=== PATIENT | male | born 1945 | race African-American/Black ===

== ENCOUNTER 2020-08-17 15:45 | Inpatient (IN) | payer OTHER ==
[2020-08-17 17:59] VITALS: BMI 16.4
[2020-08-17] MEDS ORDERED: Heparin 10,000 UNITS/ 10 ML VIAL FS SCH (20:30)
[2020-08-18] MEDS ORDERED: Ondansetron PF 4 MG/2 ML Vial IVP PRN (01:41)
[2020-08-18] MEDS ORDERED: Acetaminophen 325 MG TAB PO PRN (01:41)
[2020-08-18 04:10] LABS: #Basophils 0.1 thou/uL (0.0-0.2); #Eosinphils 0.4 thou/uL (0.0-0.7); #Monocytes 1.2 thou/uL (0.11-0.59); %Basophils 0.8 % (0.0-1.0); %Eosinophils 4.3 % (0.0-10.0); %Lymphocytes 20.5 % (21.0-51.0); %Monocytes 12.7 % (0.0-10.0); %Neutrophils 61.7 % (42.0-75.0); Hemoglobin 12.1 g/dL (14.0-18.0); Mean Corpuscular HGB CONC 33.5 g/dL (32.0-36.0); Mean Corpuscular Volume 98.5 fL (78.0-98.0); Mean Platelet Volume 6.3 fL (7.4-10.4); Platelet Count 303 thou/uL (130-400); RBC Distribution Width 11.4 % (11.5-14.5); Red Blood Cell (RBC) Count 3.66 mill/uL (4.70-6.10); White Blood Cell (WBC) Count 9.6 thou/uL (4.8-10.8)
[2020-08-18 04:29] LABS: Anion Gap 9 mmol/L (10-20); BUN (Urea Nitrogen) 8 mg/dL (8.4-25.7); Calc. Creatinine Clearance 53 mL/min (70-130); Calcium 8.1 mg/dL (7.8-10.44); Carbon Dioxide 29 mmol/L (23-31); Chloride 102 mmol/L (98-107); Glucose 92 mg/dL (83-110); Potassium 4.1 mmol/L (3.5-5.1); Sodium 136 mmol/L (136-145)
[2020-08-18 09:17] LABS: RBC Count-Automated (BF) 577 /cu.mm; WBC/Nucleated-Auto (BF) 348 uL
[2020-08-18] MEDS: methylPREDNISolone Sod Succ/PF 125 MG/2 ML VIAL IVP SCH ×2 (10:13→20:02)
[2020-08-18 10:14] LABS: Body Fluid Source Thoracentesis Fluid
[2020-08-18 10:15] LABS: BF Color Yellow; Clarity Hazy (Clear); Tube # 1
[2020-08-18 10:18] LABS: BF Segmented Neutrophils 22 %; Cell Count Non Hematic 51 %; Eosinophils 1 %; Lymphocytes 26 %
[2020-08-18] MEDS ORDERED: Magnevist 469MG/ML 20 ML VIAL ONE (10:59)
[2020-08-19 04:22] LABS: #Lymphocytes 0.9 thou/uL (1.20-3.40); #Monocytes 0.5 thou/uL (0.11-0.59); #Neutrophils 13.1 thou/uL (1.40-6.50); %Lymphocytes 6.2 % (21.0-51.0); %Monocytes 3.5 % (0.0-10.0); %Neutrophils 90.3 % (42.0-75.0); Hemoglobin 11.7 g/dL (14.0-18.0); Mean Corpuscular HGB CONC 32.2 g/dL (32.0-36.0); Mean Corpuscular Hemoglobin 31.7 pg (27.0-31.0); Mean Corpuscular Volume 98.5 fL (78.0-98.0); Mean Platelet Volume 6.7 fL (7.4-10.4); Platelet Count 305 thou/uL (130-400); RBC Distribution Width 11.6 % (11.5-14.5); Red Blood Cell (RBC) Count 3.69 mill/uL (4.70-6.10); White Blood Cell (WBC) Count 14.5 thou/uL (4.8-10.8)
[2020-08-19 07:39] LABS: Anion Gap 9 mmol/L (10-20); BUN (Urea Nitrogen) 13 mg/dL (8.4-25.7); Calc. Creatinine Clearance 41 mL/min (70-130); Calcium 8.6 mg/dL (7.8-10.44); Carbon Dioxide 28 mmol/L (23-31); Chloride 104 mmol/L (98-107); Glucose 127 mg/dL (83-110); Potassium 4.4 mmol/L (3.5-5.1); Sodium 137 mmol/L (136-145)
[2020-08-19] MEDS: methylPREDNISolone Sod Succ/PF 125 MG/2 ML VIAL IVP SCH ×2 (09:10→20:13)
[2020-08-19] MEDS ORDERED: Loratadine 10 MG TAB PO PRN (10:29)
[2020-08-19] MEDS ORDERED: HYDROcodone/Acetaminophen 5/325 mg Tablet PO PRN (10:29)
[2020-08-19] MEDS ORDERED: Ondansetron ODT 4 MG TAB PO PRN (10:29)
[2020-08-19] MEDS ORDERED: GUAIFENESIN SF SOLN 200 MG/10 ML UDCUP PO PRN (10:29)
[2020-08-19] MEDS ORDERED: hydrALAZINE 20 MG/ML VIAL SLOW IVP PRN (10:29)
[2020-08-19] MEDS ORDERED: Benzonatate 100 MG CAP PO PRN (10:29)
[2020-08-19] MEDS ORDERED: Loperamide HCl 2 MG CAP PO PRN (10:29)
[2020-08-19] MEDS ORDERED: Calcium Carbonate 500 MG ChewTAB PO PRN (10:29)
[2020-08-19] MEDS ORDERED: Senokot S 8.6-50 MG TAB PO PRN (10:29)
[2020-08-19] MEDS ORDERED: Cepastat Lozenges 1 LOZ PO PRN (10:29)
[2020-08-19] MEDS ORDERED: Sodium Chloride 0.65% Nasal 44 ML BOT EA NARE PRN (10:29)
[2020-08-19] MEDS ORDERED: Bisacodyl 5 MG TAB PO PRN (10:29)
[2020-08-19] MEDS ORDERED: Iopamidol-370 76% 500 ML 1 ML ONE (10:46)
[2020-08-19] MEDS: Mometasone 200 MCG/Formoterol 5 MCG 120 PUFF INHALER INH SCH (18:05)
[2020-08-19] MEDS: Famotidine 20 MG TAB PO SCH (20:13)
[2020-08-20 06:07] LABS: Mean Corpuscular HGB CONC 33.3 g/dL (32.0-36.0); Mean Corpuscular Hemoglobin 32.8 pg (27.0-31.0); Mean Corpuscular Volume 98.4 fL (78.0-98.0); Mean Platelet Volume 6.7 fL (7.4-10.4); Platelet Count 301 thou/uL (130-400); RBC Distribution Width 11.7 % (11.5-14.5); Red Blood Cell (RBC) Count 3.66 mill/uL (4.70-6.10)
[2020-08-20 06:26] LABS: Band 1 % (5-11); Lymphocytes 8 % (21-51); MDiff Complete? YES; Monocytes 7 % (0-10); Neutrophil 84 % (42-75)
[2020-08-20 06:27] LABS: Anion Gap 10 mmol/L (10-20); BUN (Urea Nitrogen) 11 mg/dL (8.4-25.7); Calc. Creatinine Clearance 54 mL/min (70-130); Calcium 8.6 mg/dL (7.8-10.44); Carbon Dioxide 27 mmol/L (23-31); Chloride 102 mmol/L (98-107); Glucose 127 mg/dL (83-110); Potassium 4.4 mmol/L (3.5-5.1); Sodium 135 mmol/L (136-145)
[2020-08-20] MEDS: Famotidine 20 MG TAB PO SCH ×2 (08:52→20:06)
[2020-08-20] MEDS: methylPREDNISolone Sod Succ/PF 125 MG/2 ML VIAL IVP SCH ×2 (08:52→20:06)
[2020-08-20] MEDS: Mometasone 200 MCG/Formoterol 5 MCG 120 PUFF INHALER INH SCH ×2 (10:12→19:09)
[2020-08-21 04:43] LABS: #Lymphocytes 0.7 thou/uL (1.20-3.40); #Monocytes 1.1 thou/uL (0.11-0.59); #Neutrophils 14.9 thou/uL (1.40-6.50); %Lymphocytes 4.3 % (21.0-51.0); %Monocytes 6.3 % (0.0-10.0); %Neutrophils 89.4 % (42.0-75.0); Hemoglobin 11.6 g/dL (14.0-18.0); Mean Corpuscular HGB CONC 33.1 g/dL (32.0-36.0); Mean Corpuscular Hemoglobin 32.7 pg (27.0-31.0); Mean Corpuscular Volume 98.8 fL (78.0-98.0); Mean Platelet Volume 6.9 fL (7.4-10.4); Platelet Count 295 thou/uL (130-400); RBC Distribution Width 11.5 % (11.5-14.5); Red Blood Cell (RBC) Count 3.55 mill/uL (4.70-6.10); White Blood Cell (WBC) Count 16.7 thou/uL (4.8-10.8)
[2020-08-21 05:07] LABS: ALT (SGPT) 28 U/L (8-55); AST (SGOT) 23 U/L (5-34); Alkaline Phosphatase 71 U/L (40-110); Anion Gap 12 mmol/L (10-20); BUN (Urea Nitrogen) 15 mg/dL (8.4-25.7); Bilirubin, Total 0.3 mg/dL (0.2-1.2); Calc. Creatinine Clearance 51 mL/min (70-130); Calcium 8.4 mg/dL (7.8-10.44); Carbon Dioxide 29 mmol/L (23-31); Chloride 101 mmol/L (98-107); Globulin 2.9 g/dL (2.4-3.5); Glucose 145 mg/dL (83-110); Potassium 4.1 mmol/L (3.5-5.1); Protein, Total 5.9 g/dL (5.8-8.1); Sodium 138 mmol/L (136-145)
[2020-08-21] MEDS: methylPREDNISolone Sod Succ/PF 125 MG/2 ML VIAL IVP SCH ×2 (07:35→21:06)
[2020-08-21] MEDS: Enoxaparin Sodium 30 MG/0.3 ML SYRINGE SC SCH (07:43)
[2020-08-21] MEDS: Famotidine 20 MG TAB PO SCH ×2 (07:44→21:00)
[2020-08-21] MEDS: Mometasone 200 MCG/Formoterol 5 MCG 120 PUFF INHALER INH SCH ×2 (08:03→19:19)
[2020-08-21] MEDS ORDERED: Fentanyl 100 MCG/2 ML VIAL ONE ×2 (12:51→13:21)
[2020-08-21] MEDS ORDERED: EPINEPHrine 1 MG/ML AMP ONE (13:03)
[2020-08-21] MEDS ORDERED: Bupivacaine PF 0.5% 30 ML VIAL ONE (13:03)
[2020-08-21] MEDS ORDERED: Rocuronium Bromide 10 MG/ML (10ML VIAL) ONE (13:24)
[2020-08-21] MEDS ORDERED: Ondansetron PF 4 MG/2 ML Vial ONE (13:24)
[2020-08-21] MEDS ORDERED: Lidocaine 1% PF 5 ML VIAL ONE (13:24)
[2020-08-21] MEDS ORDERED: Dexamethasone 20 MG/5 ML VIAL ONE (13:24)
[2020-08-21] MEDS ORDERED: PROPOFOL 200 MG/20 ML VIAL ONE (13:24)
[2020-08-21] MEDS ORDERED: Glycopyrrolate 0.2 MG/ML 5 ML SYRINGE ONE (13:24)
[2020-08-21] MEDS ORDERED: Succinylcholine 200 MG/10 ml SYRINGE FS ONE (13:24)
[2020-08-21] MEDS ORDERED: SUGAMMADEX SODIUM 500 MG/5 ML VIAL ONE (14:44)
[2020-08-21] MEDS ORDERED: Promethazine HCl 25 MG/ML VIAL IM PRN (14:50)
[2020-08-21] MEDS ORDERED: Promethazine HCl 25 MG/ML VIAL IVPB PRN (14:50)
[2020-08-21] MEDS ORDERED: Ondansetron HCl/PF 4 MG/2 ML Vial IVP PRN (14:50)
[2020-08-21] MEDS ORDERED: Fentanyl 100 MCG/2 ML VIAL SLOW IVP PRN ×2 (15:09)
[2020-08-21] MEDS ORDERED: Ondansetron PF 4 MG/2 ML Vial IVP PRN (15:09)
[2020-08-21] MEDS ORDERED: HYDROcodone/Acetaminophen 5/325 mg Tablet PO PRN (15:09)
[2020-08-21] MEDS ORDERED: Sodium Chloride 0.9% 1,000 ML IV SCH (15:09)
[2020-08-21] MEDS ORDERED: Talc Infusion/Pleuradesis 4 GM BOT FS SCH (15:30)
[2020-08-21] MEDS ORDERED: Sodium Chloride 0.9% 500 ML IV SCH (17:15)
[2020-08-21 20:58] LABS: Hemoglobin 12.3 g/dL (14.0-18.0); Mean Corpuscular HGB CONC 33.4 g/dL (32.0-36.0); Mean Corpuscular Hemoglobin 33.2 pg (27.0-31.0); Mean Corpuscular Volume 99.3 fL (78.0-98.0); Mean Platelet Volume 6.9 fL (7.4-10.4); Platelet Count 285 thou/uL (130-400); RBC Distribution Width 11.7 % (11.5-14.5); Red Blood Cell (RBC) Count 3.71 mill/uL (4.70-6.10); White Blood Cell (WBC) Count 19.9 thou/uL (4.8-10.8)
[2020-08-21] MEDS: HYDROcodone/Acetaminophen 5/325 mg Tablet PO PRN (21:00)
[2020-08-21] MEDS: Sodium Chloride 0.9% 1,000 ML IV SCH (21:01)
[2020-08-21 21:15] LABS: Anion Gap 15 mmol/L (10-20); BUN (Urea Nitrogen) 15 mg/dL (8.4-25.7); Calc. Creatinine Clearance 51 mL/min (70-130); Carbon Dioxide 26 mmol/L (23-31); Chloride 100 mmol/L (98-107); Glucose 153 mg/dL (83-110); Potassium 4.5 mmol/L (3.5-5.1); Sodium 136 mmol/L (136-145)
[2020-08-21 21:17] LABS: Band 15 % (5-11); Lymphocytes 4 % (21-51); MDiff Complete? YES; Monocytes 12 % (0-10); Neutrophil 69 % (42-75)
[2020-08-22] MEDS: Sodium Chloride 0.9% 1,000 ML IV SCH ×3 (04:08→20:46)
[2020-08-22] MEDS: Mometasone 200 MCG/Formoterol 5 MCG 120 PUFF INHALER INH SCH ×2 (08:12→18:09)
[2020-08-22] MEDS: Famotidine 20 MG TAB PO SCH ×2 (09:35→20:45)
[2020-08-22] MEDS: methylPREDNISolone Sod Succ/PF 125 MG/2 ML VIAL IVP SCH (09:36)
[2020-08-22] MEDS: Enoxaparin Sodium 30 MG/0.3 ML SYRINGE SC SCH (09:36)
[2020-08-22] MEDS: Tamsulosin HCl 0.4 MG CAP PO SCH (11:39)
[2020-08-22] MEDS: Zolpidem Tartrate 5 MG TAB PO PRN (20:47)
[2020-08-23] MEDS ORDERED: predniSONE 20 MG TAB PO SCH ×2 (08:00→09:30)
[2020-08-23] MEDS: Mometasone 200 MCG/Formoterol 5 MCG 120 PUFF INHALER INH SCH ×2 (08:04→19:33)
[2020-08-23] MEDS: Sodium Chloride 0.9% 1,000 ML IV SCH (08:49)
[2020-08-23] MEDS: Famotidine 20 MG TAB PO SCH ×2 (08:51→19:57)
[2020-08-23] MEDS: Tamsulosin HCl 0.4 MG CAP PO SCH (08:51)
[2020-08-23] MEDS: Enoxaparin Sodium 30 MG/0.3 ML SYRINGE SC SCH (08:51)
[2020-08-23] MEDS: HYDROcodone/Acetaminophen 5/325 mg Tablet PO PRN (16:16)
[2020-08-24] MEDS: Mometasone 200 MCG/Formoterol 5 MCG 120 PUFF INHALER INH SCH ×2 (07:50→19:34)
[2020-08-24] MEDS: Famotidine 20 MG TAB PO SCH ×2 (09:06→20:22)
[2020-08-24] MEDS: predniSONE 20 MG TAB PO SCH (09:06)
[2020-08-24] MEDS: Tamsulosin HCl 0.4 MG CAP PO SCH (09:07)
[2020-08-24] MEDS: Enoxaparin Sodium 30 MG/0.3 ML SYRINGE SC SCH (09:07)
[2020-08-24 09:15] LABS: #Eosinphils 0.7 thou/uL (0.0-0.7); #Lymphocytes 1.3 thou/uL (1.20-3.40); #Monocytes 2.5 thou/uL (0.11-0.59); %Basophils 0.3 % (0.0-1.0); %Eosinophils 3.8 % (0.0-10.0); %Lymphocytes 7.4 % (21.0-51.0); %Monocytes 14.3 % (0.0-10.0); %Neutrophils 74.3 % (42.0-75.0); Hemoglobin 11.3 g/dL (14.0-18.0); Mean Corpuscular HGB CONC 31.5 g/dL (32.0-36.0); Mean Corpuscular Hemoglobin 31.4 pg (27.0-31.0); Mean Corpuscular Volume 99.7 fL (78.0-98.0); Mean Platelet Volume 6.9 fL (7.4-10.4); Platelet Count 245 thou/uL (130-400); RBC Distribution Width 11.5 % (11.5-14.5); Red Blood Cell (RBC) Count 3.61 mill/uL (4.70-6.10); White Blood Cell (WBC) Count 17.5 thou/uL (4.8-10.8)
[2020-08-24 09:41] LABS: ALT (SGPT) 30 U/L (8-55); AST (SGOT) 30 U/L (5-34); Albumin 2.7 g/dL (3.4-4.8); Alkaline Phosphatase 60 U/L (40-110); Anion Gap 14 mmol/L (10-20); BUN (Urea Nitrogen) 7 mg/dL (8.4-25.7); Bilirubin, Total 0.6 mg/dL (0.2-1.2); Calc. Creatinine Clearance 66 mL/min (70-130); Calcium 8.2 mg/dL (7.8-10.44); Carbon Dioxide 26 mmol/L (23-31); Chloride 93 mmol/L (98-107); Globulin 3.1 g/dL (2.4-3.5); Glucose 141 mg/dL (83-110); Potassium 3.7 mmol/L (3.5-5.1); Protein, Total 5.8 g/dL (5.8-8.1); Sodium 129 mmol/L (136-145)
[2020-08-24] MEDS: HYDROcodone/Acetaminophen 5/325 mg Tablet PO PRN (20:23)
[2020-08-25] MEDS: Mometasone 200 MCG/Formoterol 5 MCG 120 PUFF INHALER INH SCH ×2 (06:32→19:11)
[2020-08-25] MEDS: Tamsulosin HCl 0.4 MG CAP PO SCH (09:45)
[2020-08-25] MEDS: Famotidine 20 MG TAB PO SCH ×2 (09:45→20:09)
[2020-08-25] MEDS: predniSONE 20 MG TAB PO SCH (09:46)
[2020-08-25] MEDS: Enoxaparin Sodium 30 MG/0.3 ML SYRINGE SC SCH (09:47)
[2020-08-25] MEDS: HYDROcodone/Acetaminophen 5/325 mg Tablet PO PRN (20:10)
[2020-08-26] MEDS: HYDROcodone/Acetaminophen 5/325 mg Tablet PO PRN ×3 (04:17→20:24)
[2020-08-26] MEDS: Mometasone 200 MCG/Formoterol 5 MCG 120 PUFF INHALER INH SCH ×2 (07:21→18:46)
[2020-08-26] MEDS: predniSONE 20 MG TAB PO SCH (08:23)
[2020-08-26] MEDS: Famotidine 20 MG TAB PO SCH ×2 (08:24→20:24)
[2020-08-26] MEDS: Tamsulosin HCl 0.4 MG CAP PO SCH (08:24)
[2020-08-26] MEDS: Enoxaparin Sodium 30 MG/0.3 ML SYRINGE SC SCH (08:24)
[2020-08-26] MEDS: Zolpidem Tartrate 5 MG TAB PO PRN (22:42)
[2020-08-27] MEDS: Mometasone 200 MCG/Formoterol 5 MCG 120 PUFF INHALER INH SCH ×2 (07:33→18:31)
[2020-08-27] MEDS: Tamsulosin HCl 0.4 MG CAP PO SCH (07:59)
[2020-08-27] MEDS: predniSONE 20 MG TAB PO SCH (07:59)
[2020-08-27] MEDS: Famotidine 20 MG TAB PO SCH ×2 (07:59→19:39)
[2020-08-27] MEDS: HYDROcodone/Acetaminophen 5/325 mg Tablet PO PRN ×2 (08:00→19:38)
[2020-08-27] MEDS: Enoxaparin Sodium 30 MG/0.3 ML SYRINGE SC SCH (08:01)
[2020-08-28] MEDS: Zolpidem Tartrate 5 MG TAB PO PRN (00:01)
[2020-08-28] MEDS: Mometasone 200 MCG/Formoterol 5 MCG 120 PUFF INHALER INH SCH ×2 (08:02→19:10)
[2020-08-28] MEDS: predniSONE 20 MG TAB PO SCH (08:21)
[2020-08-28] MEDS: Tamsulosin HCl 0.4 MG CAP PO SCH (08:21)
[2020-08-28] MEDS: Famotidine 20 MG TAB PO SCH ×2 (08:22→20:27)
[2020-08-28] MEDS: Enoxaparin Sodium 30 MG/0.3 ML SYRINGE SC SCH (08:23)
[2020-08-28] MEDS: HYDROcodone/Acetaminophen 5/325 mg Tablet PO PRN ×3 (09:01→20:27)
[2020-08-28 10:37] LABS: #Eosinphils 0.4 thou/uL (0.0-0.7); #Lymphocytes 1.5 thou/uL (1.20-3.40); #Monocytes 1.7 thou/uL (0.11-0.59); #Neutrophils 15.8 thou/uL (1.40-6.50); %Basophils 0.2 % (0.0-1.0); %Eosinophils 2.1 % (0.0-10.0); %Lymphocytes 7.8 % (21.0-51.0); %Monocytes 8.8 % (0.0-10.0); %Neutrophils 81.1 % (42.0-75.0); Hemoglobin 11.3 g/dL (14.0-18.0); Mean Corpuscular HGB CONC 32.2 g/dL (32.0-36.0); Mean Corpuscular Hemoglobin 32.1 pg (27.0-31.0); Mean Corpuscular Volume 99.6 fL (78.0-98.0); Mean Platelet Volume 6.6 fL (7.4-10.4); Platelet Count 382 thou/uL (130-400); RBC Distribution Width 11.7 % (11.5-14.5); Red Blood Cell (RBC) Count 3.52 mill/uL (4.70-6.10); White Blood Cell (WBC) Count 19.5 thou/uL (4.8-10.8)
[2020-08-28 10:55] LABS: Anion Gap 13 mmol/L (10-20); BUN (Urea Nitrogen) 9 mg/dL (8.4-25.7); Calc. Creatinine Clearance 57 mL/min (70-130); Calcium 8.6 mg/dL (7.8-10.44); Carbon Dioxide 28 mmol/L (23-31); Chloride 95 mmol/L (98-107); Glucose 135 mg/dL (83-110); Potassium 3.6 mmol/L (3.5-5.1); Sodium 132 mmol/L (136-145)
[2020-08-29] MEDS: Mometasone 200 MCG/Formoterol 5 MCG 120 PUFF INHALER INH SCH ×2 (08:27→19:22)
[2020-08-29] MEDS: Tamsulosin HCl 0.4 MG CAP PO SCH (08:45)
[2020-08-29] MEDS: Famotidine 20 MG TAB PO SCH ×2 (08:45→20:25)
[2020-08-29] MEDS: predniSONE 20 MG TAB PO SCH (08:46)
[2020-08-29] MEDS: Enoxaparin Sodium 30 MG/0.3 ML SYRINGE SC SCH (08:47)
[2020-08-29] MEDS: HYDROcodone/Acetaminophen 5/325 mg Tablet PO PRN ×2 (10:35→20:26)
[2020-08-30] MEDS: Mometasone 200 MCG/Formoterol 5 MCG 120 PUFF INHALER INH SCH (08:10)
[2020-08-30 08:16] VITALS: BP 140/71; TEMP 98.7
[2020-08-30] MEDS: Famotidine 20 MG TAB PO SCH (08:56)
[2020-08-30] MEDS: predniSONE 20 MG TAB PO SCH (08:57)
[2020-08-30] MEDS: Tamsulosin HCl 0.4 MG CAP PO SCH (08:57)
[2020-08-30] MEDS: Enoxaparin Sodium 30 MG/0.3 ML SYRINGE SC SCH (08:57)
[2020-08-30] MEDS: HYDROcodone/Acetaminophen 5/325 mg Tablet PO PRN ×2 (09:22→17:12)
== END 2020-08-30 17:45 | disposition home or self-care (01) | DRG 163 ==
LOC: ONC 15:45 → CCU 08-21 08:51 → ONC 08-21 15:16
PROVIDERS: ADMIT Internal Medicine; ATTEND Internal Medicine
PROC: 0W993ZZ Drainage of Right Pleural Cavity, Percutaneous Approach (ICD-10-PCS; 2020-08-18)
PROC: 0B5N4ZZ Destruction of Right Pleura, Percutaneous Endoscopic Approach (ICD-10-PCS; principal; 2020-08-21)
PROC: 0BBN4ZX Excision of Right Pleura, Percutaneous Endoscopic Approach, Diagnostic (ICD-10-PCS; 2020-08-21)
PROC: 3E0L4GC Introduction of Other Therapeutic Substance into Pleural Cavity, Percutaneous Endoscopic Approach (ICD-10-PCS; 2020-08-21)
DX: C34.91 Malignant neoplasm of unspecified part of right bronchus or lung (principal); J96.01 Acute respiratory failure with hypoxia; J91.0 Malignant pleural effusion; C79.51 Secondary malignant neoplasm of bone; C78.2 Secondary malignant neoplasm of pleura; J44.1 Chronic obstructive pulmonary disease with (acute) exacerbation; E44.0 Moderate protein-calorie malnutrition; Z68.1 Body mass index [BMI] 19.9 or less, adult; J98.11 Atelectasis; T38.0X5A Adverse effect of glucocorticoids and synthetic analogues, initial encounter; R91.8 Other nonspecific abnormal finding of lung field; D72.829 Elevated white blood cell count, unspecified; Z87.891 Personal history of nicotine dependence; Z51.5 Encounter for palliative care
CPT/HCPCS: 36415; 70553; 71045; 71046; 71260; 80048; 80053; 82150; 82945; 83615; 83986; 84157; 84478; 85025; 85060; 87070; 87116; 87205; 87206; 88112; 88305; 88313; 88341; 88342; 89051; 94640; 94664; A9579; J0171; J0690; J1100; J1642; J1644; J1650; J2405; J2704; J2930; J3010; J7512; J7620; Q9967; S0020

== ENCOUNTER 2021-01-16 11:01 | Outpatient (CLI) | payer OTHER | END 2021-01-16 11:02 | disposition home or self-care (01) | LOC: PET 11:01 | PROVIDERS: ATTEND Internal Medicine Hematology & Oncology | DX: C34.11 Malignant neoplasm of upper lobe, right bronchus or lung (principal) | CPT/HCPCS: 78815; A9552 ==

== ENCOUNTER 2021-07-26 09:15 | Outpatient (CLI) | payer OTHER | END 2021-07-26 09:16 | disposition home or self-care (01) | LOC: PET 09:15 | PROVIDERS: ATTEND Internal Medicine Hematology & Oncology | DX: C34.11 Malignant neoplasm of upper lobe, right bronchus or lung (principal); R90.82 White matter disease, unspecified; R94.8 Abnormal results of function studies of other organs and systems | CPT/HCPCS: 70553; 78815; A9552 ==

== ENCOUNTER 2021-08-24 09:17 | Outpatient (CLI) | payer OTHER | END 2021-08-24 09:18 | disposition home or self-care (01) | LOC: ULT 09:17 | PROVIDERS: ATTEND Internal Medicine Hematology & Oncology | DX: R74.01 Elevation of levels of liver transaminase levels (principal); C34.11 Malignant neoplasm of upper lobe, right bronchus or lung | CPT/HCPCS: 76700 ==

== ENCOUNTER 2021-08-31 08:28 | Outpatient (CLI) | payer OTHER ==
[~2021-08-31 08:28] MED LIST: Gadobenate Dimeglumine 529 MG/1 ML (20ML VIAL) ONE
== END 2021-08-31 08:29 | disposition home or self-care (01) ==
LOC: MRI 08:28
PROVIDERS: ATTEND Internal Medicine Hematology & Oncology
DX: C34.90 Malignant neoplasm of unspecified part of unspecified bronchus or lung (principal); R79.89 Other specified abnormal findings of blood chemistry; K86.89 Other specified diseases of pancreas; M89.8X8 Other specified disorders of bone, other site
CPT/HCPCS: 74183; A9577

== ENCOUNTER 2021-09-10 21:10 | Inpatient (IN) | payer OTHER ==
[2021-09-11] MEDS ORDERED: Ondansetron PF 4 MG/2 ML Vial IVP PRN (00:36)
[2021-09-11] MEDS ORDERED: Acetaminophen 325 MG TAB PO PRN (00:36)
[2021-09-11] MEDS ORDERED: Senokot S 8.6-50 MG TAB PO PRN ×2 (00:36→11:00)
[2021-09-11] MEDS ORDERED: Ondansetron ODT 4 MG TAB PO PRN (00:36)
[2021-09-11] MEDS ORDERED: HYDROcodone/Acetaminophen 5/325 mg Tablet PO PRN (00:41)
[2021-09-11] MEDS ORDERED: Magnesium 2 GM/50 ML(in water) 2 GM in Premix Bag 1 BAG IVPB SCH (01:00)
[2021-09-11] MEDS ORDERED: Albuterol Sulfate 2.5 mg/3 ml Neb NEB PRN (01:01)
[2021-09-11] MEDS ORDERED: Dextrose 50% Abboject 50 ML SYRINGE SLOW IVP PRN (01:03)
[2021-09-11] MEDS ORDERED: Dextrose 5% in Water 1,000 ML IV PRN (01:03)
[2021-09-11 01:04] VITALS: BMI 15.4
[2021-09-11] MEDS ORDERED: Loperamide HCl 2 MG CAP PO SCH (01:49)
[2021-09-11] MEDS: Dextrose 5%-Lactated Ringers 1,000 ML IV SCH ×2 (02:06→15:55)
[2021-09-11] MEDS: HYDROcodone/Acetaminophen 5/325 mg Tablet PO PRN ×4 (02:14→23:05)
[2021-09-11 05:05] LABS: #Basophils 0.1 thou/uL (0.0-0.2); #Eosinphils 0.4 thou/uL (0.0-0.7); #Lymphocytes 2.2 thou/uL (1.20-3.40); #Monocytes 1.1 thou/uL (0.11-0.59); #Neutrophils 4.3 thou/uL (1.40-6.50); %Basophils 1.1 % (0.0-1.0); %Eosinophils 4.4 % (0.0-10.0); %Lymphocytes 27.7 % (21.0-51.0); %Monocytes 13.5 % (0.0-10.0); %Neutrophils 53.3 % (42.0-75.0); Hemoglobin 10.4 g/dL (14.0-18.0); Mean Corpuscular HGB CONC 32.1 g/dL (32.0-36.0); Mean Corpuscular Hemoglobin 31.1 pg (27.0-31.0); Mean Corpuscular Volume 96.7 fL (78.0-98.0); Mean Platelet Volume 6.9 fL (7.4-10.4); Platelet Count 251 thou/uL (130-400); RBC Distribution Width 13.3 % (11.5-14.5); Red Blood Cell (RBC) Count 3.36 mill/uL (4.70-6.10); White Blood Cell (WBC) Count 8.1 thou/uL (4.8-10.8)
[2021-09-11 05:22] LABS: Phosphorus 2.5 mg/dL (2.3-4.7)
[2021-09-11 05:28] LABS: ALT (SGPT) 117 U/L (8-55); AST (SGOT) 264 U/L (5-34); Albumin 3.4 g/dL (3.4-4.8); Alkaline Phosphatase 1471 U/L (40-110); Anion Gap 16 mmol/L (10-20); BUN (Urea Nitrogen) 21 mg/dL (8.4-25.7); Bilirubin, Total 0.9 mg/dL (0.2-1.2); Calc. Creatinine Clearance 46 mL/min (70-130); Calcium 9.2 mg/dL (7.8-10.44); Carbon Dioxide 25 mmol/L (23-31); Chloride 95 mmol/L (98-107); Estimated GFR 90; Globulin 3.4 g/dL (2.4-3.5); Glucose 74 mg/dL (83-110); Magnesium 1.7 mg/dL (1.6-2.6); Potassium 3.9 mmol/L (3.5-5.1); Protein, Total 6.8 g/dL (5.8-8.1); Sodium 132 mmol/L (136-145)
[2021-09-11] MEDS: Mometasone 200 MCG/Formoterol 5 MCG 120 PUFF INHALER INH SCH ×2 (07:55→18:33)
[2021-09-11] MEDS ORDERED: Famotidine 20 MG TAB PO SCH (09:00)
[2021-09-11] MEDS: guaiFENesin/DM ER PO SCH ×2 (09:55→21:57)
[2021-09-12] MEDS: HYDROcodone/Acetaminophen 5/325 mg Tablet PO PRN ×4 (04:23→21:02)
[2021-09-12] MEDS: Dextrose 5%-Lactated Ringers 1,000 ML IV SCH ×2 (04:24→17:08)
[2021-09-12 05:15] LABS: #Basophils 0.1 thou/uL (0.0-0.2); #Eosinphils 0.6 thou/uL (0.0-0.7); #Lymphocytes 2.7 thou/uL (1.20-3.40); #Monocytes 0.7 thou/uL (0.11-0.59); #Neutrophils 2.3 thou/uL (1.40-6.50); %Basophils 1.2 % (0.0-1.0); %Eosinophils 9.5 % (0.0-10.0); %Monocytes 11.4 % (0.0-10.0); %Neutrophils 35.8 % (42.0-75.0); Hemoglobin 10.3 g/dL (14.0-18.0); Mean Corpuscular HGB CONC 32.6 g/dL (32.0-36.0); Mean Platelet Volume 7.7 fL (7.4-10.4); Platelet Count 254 thou/uL (130-400); RBC Distribution Width 13.2 % (11.5-14.5); Red Blood Cell (RBC) Count 3.21 mill/uL (4.70-6.10); White Blood Cell (WBC) Count 6.5 thou/uL (4.8-10.8)
[2021-09-12 05:27] LABS: INR-International Normal Ratio 1.2; Prothrombin Time 15.2 sec (12.0-14.7)
[2021-09-12 05:41] LABS: ALT (SGPT) 87 U/L (8-55); AST (SGOT) 160 U/L (5-34); Albumin 2.9 g/dL (3.4-4.8); Alkaline Phosphatase 1213 U/L (40-110); Anion Gap 14 mmol/L (10-20); BUN (Urea Nitrogen) 9 mg/dL (8.4-25.7); Bilirubin, Total 0.6 mg/dL (0.2-1.2); Calc. Creatinine Clearance 60 mL/min (70-130); Calcium 8.4 mg/dL (7.8-10.44); Carbon Dioxide 28 mmol/L (23-31); Chloride 95 mmol/L (98-107); Estimated GFR 98; Glucose 96 mg/dL (83-110); Protein, Total 5.9 g/dL (5.8-8.1); Sodium 133 mmol/L (136-145)
[2021-09-12 06:00] LABS: HBCM Index 0.17 S/CO (0-0.79); HBSAg Index 0.32 S/CO (0-0.99); Hep A IgM AB Non-Reactive (NonReactive); Hep A IgM S/CO 0.58 S/CO (0-0.79); Hep B Surf Ag Non-Reactive S/CO (NonReactive); Hep C IgG Ab Non-Reactive (NonReactive); Hep C Index 0.14 S/CO (0-0.79); Hepatitis B Core IgM Abs Non-Reactive (NonReactive)
[2021-09-12] MEDS: Mometasone 200 MCG/Formoterol 5 MCG 120 PUFF INHALER INH SCH ×2 (07:10→19:38)
[2021-09-12] MEDS: Famotidine 20 MG TAB PO SCH (08:35)
[2021-09-12] MEDS: Dronabinol 2.5 MG CAP PO SCH ×2 (08:36→17:55)
[2021-09-12] MEDS: guaiFENesin/DM ER PO SCH ×2 (08:37→20:43)
[2021-09-12 09:16] LABS: % Free PSA 14.4 % (.); Total PSA 0.9 ng/mL (0.0-4.0)
[2021-09-12] MEDS ORDERED: Midazolam HCl 2 mg/2 ml Vial ONE (14:14)
[2021-09-12] MEDS ORDERED: Sodium Bicarbonate 2.5 MEQ/5 ML VIAL ONE (14:14)
[2021-09-12] MEDS ORDERED: Fentanyl 100 MCG/2 ML VIAL ONE (14:14)
[2021-09-12] MEDS ORDERED: Lidocaine 1% PF 5 ML VIAL ONE (14:42)
[2021-09-12 23:13] VITALS: TEMP 98
[2021-09-13] MEDS: HYDROcodone/Acetaminophen 5/325 mg Tablet PO PRN ×3 (02:36→10:09)
[2021-09-13] MEDS: Dextrose 5%-Lactated Ringers 1,000 ML IV SCH (06:14)
[2021-09-13] MEDS: Mometasone 200 MCG/Formoterol 5 MCG 120 PUFF INHALER INH SCH (07:12)
[2021-09-13 08:30] VITALS: BP 117/69
[2021-09-13] MEDS: Dronabinol 2.5 MG CAP PO SCH (08:52)
[2021-09-13] MEDS: Famotidine 20 MG TAB PO SCH (08:52)
[2021-09-13] MEDS: guaiFENesin/DM ER PO SCH (08:53)
[2021-09-14 23:37] LABS: Alkaline Phosphastase Total 1227 IU/L (44-121); Bone 7 % (12-68); Intestinal 0 % (0-18); Liver 93 % (13-88)
[2021-09-15 15:46] LABS: ANA Symphony (Qualitative) Negative (Negative); ANA Symphony (Quantitative) 0.6 Ratio (< 0.7 Negative); EliA Vaculitis New Method **** NEW METHOD ****; Mitochondrial Ab 1.4 U/mL (<4 Negative); dsDNA IgG Antibody 1.6 IU/mL (<10 Negative)
== END 2021-09-13 14:50 | disposition home or self-care (01) | DRG 442 ==
LOC: MSONC 21:11 → OBSVTOIN 09-11 00:36
PROVIDERS: ADMIT Internal Medicine; ATTEND Internal Medicine
PROC: 0FB03ZX Excision of Liver, Percutaneous Approach, Diagnostic (ICD-10-PCS; principal; 2021-09-12)
DX: R94.5 Abnormal results of liver function studies (principal); C34.90 Malignant neoplasm of unspecified part of unspecified bronchus or lung; E44.0 Moderate protein-calorie malnutrition; C79.51 Secondary malignant neoplasm of bone; Z68.1 Body mass index [BMI] 19.9 or less, adult; C34.91 Malignant neoplasm of unspecified part of right bronchus or lung; J96.11 Chronic respiratory failure with hypoxia; J44.9 Chronic obstructive pulmonary disease, unspecified; Z66 Do not resuscitate; E16.2 Hypoglycemia, unspecified; E83.42 Hypomagnesemia; R62.7 Adult failure to thrive; D63.8 Anemia in other chronic diseases classified elsewhere; Z20.822 Contact with and (suspected) exposure to COVID-19; Z99.81 Dependence on supplemental oxygen; Z79.899 Other long term (current) drug therapy
CPT/HCPCS: 36415; 36416; 47000; 74018; 76942; 80053; 80074; 83516; 83630; 83735; 84075; 84100; 84153; 84154; 85025; 85610; 85652; 86015; 86038; 86140; 86225; 87324; 87449; 88307; 88313; 94664; G0103; J2250; J3010; J3475; Q0167

== ENCOUNTER 2021-11-15 11:45 | Outpatient (CLI) | payer OTHER | END 2021-11-15 11:46 | disposition home or self-care (01) | LOC: PET 11:45 | PROVIDERS: ATTEND Internal Medicine Hematology & Oncology | DX: C34.11 Malignant neoplasm of upper lobe, right bronchus or lung (principal); R94.8 Abnormal results of function studies of other organs and systems | CPT/HCPCS: 78815; A9552 ==

== ENCOUNTER 2021-11-21 08:15 | Outpatient (CLI) | payer OTHER | END 2021-11-21 08:16 | disposition home or self-care (01) | LOC: SCSMRI 08:15 | PROVIDERS: ATTEND Internal Medicine Hematology & Oncology | DX: C34.90 Malignant neoplasm of unspecified part of unspecified bronchus or lung (principal); R74.01 Elevation of levels of liver transaminase levels | CPT/HCPCS: 70553 ==

== ENCOUNTER → 2022-01-11 | Outpatient (CLI) | payer OTHER | LOC: PET 10:15 | PROVIDERS: ATTEND Internal Medicine Hematology & Oncology | DX: C34.11 Malignant neoplasm of upper lobe, right bronchus or lung (principal) | CPT/HCPCS: 78815; A9552 ==

== ENCOUNTER 2022-04-12 09:30 | Outpatient (CLI) | payer OTHER | END 2022-04-12 09:31 | disposition home or self-care (01) | LOC: PET 09:30 | PROVIDERS: ATTEND Internal Medicine Hematology & Oncology | DX: C34.11 Malignant neoplasm of upper lobe, right bronchus or lung (principal); C79.51 Secondary malignant neoplasm of bone; J98.4 Other disorders of lung | CPT/HCPCS: 78815; A9552 ==

== ENCOUNTER 2022-06-04 12:11 | Outpatient (CLI) | payer OTHER | END 2022-06-04 12:12 | disposition home or self-care (01) | LOC: SCSMRI 12:11 | PROVIDERS: ATTEND Internal Medicine Hematology & Oncology | DX: C34.11 Malignant neoplasm of upper lobe, right bronchus or lung (principal); R74.01 Elevation of levels of liver transaminase levels | CPT/HCPCS: 70553 ==

== ENCOUNTER 2022-06-12 08:00 | Outpatient (CLI) | payer OTHER | END 2022-06-12 08:01 | LOC: PET 08:00 | PROVIDERS: ATTEND Internal Medicine Hematology & Oncology | DX: C34.11 Malignant neoplasm of upper lobe, right bronchus or lung (principal); C79.51 Secondary malignant neoplasm of bone; R91.8 Other nonspecific abnormal finding of lung field | CPT/HCPCS: 78815; A9552 ==

== ENCOUNTER 2022-11-15 11:52 | Outpatient (CLI) | payer OTHER | END 2022-11-15 11:53 | disposition home or self-care (01) | LOC: PET 11:52 | PROVIDERS: ATTEND Internal Medicine Hematology & Oncology | DX: C34.11 Malignant neoplasm of upper lobe, right bronchus or lung (principal) | CPT/HCPCS: 78815; A9552 ==

== ENCOUNTER 2022-11-19 05:40 | Inpatient (IN) | payer OTHER ==
[2022-11-19] MEDS ORDERED: HYDROcodone/Acetaminophen 10/325 mg Tablet ONE (06:12)
[2022-11-19] MEDS ORDERED: Acetaminophen 325 MG TAB ONE (06:13)
[2022-11-19] MEDS ORDERED: cefTRIAXone (ROCEPHIN) 1 GM VIAL ONE (06:13)
[2022-11-19] MEDS ORDERED: Ondansetron PF 4 MG/2 ML Vial ONE (06:13)
[2022-11-19] MEDS ORDERED: Ibuprofen 200 MG TAB ONE (06:26)
[2022-11-19 07:01] LABS: #Basophils 0.1 thou/uL (0.0-0.2); #Eosinphils 0.1 thou/uL (0.0-0.7); #Monocytes 1.7 thou/uL (0.11-0.59); #Neutrophils 20.1 thou/uL (1.40-6.50); %Basophils 0.3 % (0.0-1.0); %Eosinophils 0.3 % (0.0-10.0); %Lymphocytes 4.2 % (21.0-51.0); %Monocytes 7.4 % (0.0-10.0); %Neutrophils 87.1 % (42.0-75.0); Hematocrit 35.3 % (42.0-52.0); Hemoglobin 11.4 g/dL (14.0-18.0); Mean Corpuscular HGB CONC 32.3 g/dL (32.0-36.0); Mean Corpuscular Hemoglobin 31.6 pg (27.0-31.0); Mean Corpuscular Volume 97.8 fl (78.0-98.0); Mean Platelet Volume 9.1 fL (7.4-10.4); Platelet Count 226 10x3/uL (130-400); RBC Distribution Width 11.9 % (11.5-14.5); Red Blood Cell (RBC) Count 3.61 mill/uL (4.70-6.10)
[2022-11-19 07:15] LABS: Bilirubin Negative (Negative); Blood, Urine Negative (Negative); CAUTI Indications for Culture Fever or rigors; Clarity Clear (Clear); Glucose, Urine (Dipstick) Normal (Negative); Ketone, Urine Trace mg/dL (Negative); Leukocyte 25 Leu/uL (Negative); Nitrite Negative (Negative); Protein, Urine (Dipstick) Negative (Neg-Trace); RBC/HPF None Seen HPF (0-3); Specific Gravity, Urine 1.019 (1.002-1.036); Squamous Epithelial None Seen HPF (0-3); Urobilinogen Normal mg/dL (Less than 2); pH, Urine 6.5 (5.0-9.0)
[2022-11-19 07:16] LABS: Bacteria/HPF Rare-Few HPF (None Seen)
[2022-11-19 07:21] LABS: SARS-CoV-2 NAA Rapid Test Not Detected (NotDetected)
[2022-11-19 07:26] LABS: Urine Culture Reflex Yes Yes
[2022-11-19 07:55] LABS: ALT (SGPT) 10 U/L (8-55); AST (SGOT) 26 U/L (5-34); Albumin 4.1 g/dL (3.4-4.8); Alkaline Phosphatase 64 U/L (40-110); Anion Gap 18 mmol/L (10-20); BUN (Urea Nitrogen) 13 mg/dL (8.4-25.7); Bilirubin, Total 1.9 mg/dL (0.2-1.2); Calc. Creatinine Clearance 0 mL/min (70-130); Calcium 9.3 mg/dL (7.8-10.44); Carbon Dioxide 27 mmol/L (23-31); Chloride 95 mmol/L (98-107); Estimated GFR 91; Globulin 2.4 g/dL (2.4-3.5); Glucose 86 mg/dL (83-110); Lipase Less than 4 U/L (8-78); Magnesium 1.3 mg/dL (1.6-2.6); Protein, Total 6.5 g/dL (5.8-8.1); Sodium 136 mmol/L (136-145)
[2022-11-19 07:59] LABS: Troponin I Less than 0.010 ng/mL (< 0.028)
[2022-11-19] MEDS ORDERED: Ondansetron PF 4 MG/2 ML Vial IVP PRN ×2 (09:44→10:59)
[2022-11-19] MEDS ORDERED: Ondansetron ODT 4 MG TAB PO PRN ×2 (09:44→10:59)
[2022-11-19] MEDS ORDERED: Sodium Chloride 0.9% 1,000 ML IV SCH (09:45)
[2022-11-19] MEDS ORDERED: Magnesium 2 GM/50 ML BAG (IN WATER) ONE (09:52)
[2022-11-19] MEDS ORDERED: Azithromycin 500 MG VIAL ONE (09:52)
[2022-11-19] MEDS ORDERED: Iopamidol-370 76% 500 ML MDV (1 ML CHARGE) ONE (10:36)
[2022-11-19 10:41] VITALS: BMI 19.5
[2022-11-19] MEDS ORDERED: Docusate 100 MG CAP PO PRN (10:58)
[2022-11-19] MEDS ORDERED: Pantoprazole 40 MG VIAL IVP SCH (10:59)
[2022-11-19] MEDS ORDERED: Senokot S 8.6-50 MG TAB PO PRN (10:59)
[2022-11-19] MEDS ORDERED: Acetaminophen 325 MG TAB PO PRN (10:59)
[2022-11-19] MEDS ORDERED: Electrolyte Replacement Protocol 1 EACH FS SCH (11:00)
[2022-11-19] MEDS ORDERED: Benzonatate 100 MG CAP PO PRN (11:03)
[2022-11-19 12:02] LABS: Legionella Urinary Ag Negative (Negative); Strep pneumo Urine Ag NEGATIVE (NEGATIVE)
[2022-11-19] MEDS: HYDROcodone/Acetaminophen 10/325 mg Tablet PO PRN ×2 (12:38→20:46)
[2022-11-19] MEDS: methylPREDNISolone Sod Succ 40 MG VIAL IVP SCH ×2 (12:39→17:51)
[2022-11-19] MEDS: Ipratropium/Albuterol 3 ML NEB NEB SCH ×2 (14:06→18:50)
[2022-11-19] MEDS: Mometasone/Formoterol 200/5 60 PUFF INH SCH (18:51)
[2022-11-19] MEDS: Ampicillin/Sulbactam 3 GM in Sodium Chloride 0.9% 100 ML IVPB SCH (20:47)
[2022-11-20] MEDS: Ipratropium/Albuterol 3 ML NEB NEB SCH ×5 (00:09→23:24)
[2022-11-20] MEDS: methylPREDNISolone Sod Succ 40 MG VIAL IVP SCH ×4 (00:55→17:52)
[2022-11-20] MEDS: HYDROcodone/Acetaminophen 10/325 mg Tablet PO PRN ×4 (01:01→18:33)
[2022-11-20] MEDS: Ampicillin/Sulbactam 3 GM in Sodium Chloride 0.9% 100 ML IVPB SCH ×3 (02:59→15:01)
[2022-11-20 07:05] LABS: #Monocytes 0.9 thou/uL (0.11-0.59); #Neutrophils 21.7 thou/uL (1.40-6.50); %Basophils 0.1 % (0.0-1.0); %Lymphocytes 5.2 % (21.0-51.0); %Monocytes 3.6 % (0.0-10.0); %Neutrophils 89.3 % (42.0-75.0); Hematocrit 29.2 % (42.0-52.0); Mean Corpuscular HGB CONC 34.2 g/dL (32.0-36.0); Mean Corpuscular Hemoglobin 32.8 pg (27.0-31.0); Mean Corpuscular Volume 95.7 fl (78.0-98.0); Mean Platelet Volume 9.2 fL (7.4-10.4); Platelet Count 201 10x3/uL (130-400); RBC Distribution Width 11.9 % (11.5-14.5); Red Blood Cell (RBC) Count 3.05 mill/uL (4.70-6.10); White Blood Cell (WBC) Count 24.3 10x3/uL (4.8-10.8)
[2022-11-20] MEDS: Mometasone/Formoterol 200/5 60 PUFF INH SCH ×2 (07:21→18:40)
[2022-11-20] MEDS ORDERED: predniSONE 5 MG TAB PO SCH (08:00)
[2022-11-20 08:14] LABS: ALT (SGPT) 11 U/L (8-55); AST (SGOT) 16 U/L (5-34); Albumin 3.5 g/dL (3.4-4.8); Alkaline Phosphatase 61 U/L (40-110); Anion Gap 12 mmol/L (10-20); BUN (Urea Nitrogen) 10 mg/dL (8.4-25.7); Bilirubin, Total 0.7 mg/dL (0.2-1.2); Calc. Creatinine Clearance 65 mL/min (70-130); Calcium 8.9 mg/dL (7.8-10.44); Carbon Dioxide 30 mmol/L (23-31); Chloride 99 mmol/L (98-107); Estimated GFR 93; Globulin 2.3 g/dL (2.4-3.5); Glucose 161 mg/dL (83-110); Magnesium 1.7 mg/dL (1.6-2.6); Phosphorus 2.5 mg/dL (2.3-4.7); Potassium 3.9 mmol/L (3.5-5.1); Protein, Total 5.8 g/dL (5.8-8.1); Sodium 137 mmol/L (136-145)
[2022-11-20] MEDS ORDERED: cefTRIAXone\\ROCEPHIN 1 GM in Sodium Chloride 0.9% 100 ML IVPB SCH ×2 (11:15→20:00)
[2022-11-20] MEDS ORDERED: Azithromycin 500 MG in Sodium Chloride 0.9% 250 ML 250 ML IVPB SCH (11:15)
[2022-11-20] MEDS ORDERED: Magnesium 2 GM/50 ML(in water) 2 GM in Premix Bag 1 BAG IVPB SCH (11:45)
[2022-11-21] MEDS: methylPREDNISolone Sod Succ 40 MG VIAL IVP SCH ×3 (00:28→12:52)
[2022-11-21] MEDS: HYDROcodone/Acetaminophen 10/325 mg Tablet PO PRN ×3 (00:28→10:17)
[2022-11-21 06:41] LABS: Hematocrit 31.4 % (42.0-52.0); Hemoglobin 10.6 g/dL (14.0-18.0); Mean Corpuscular HGB CONC 33.8 g/dL (32.0-36.0); Mean Corpuscular Volume 94.9 fl (78.0-98.0); Mean Platelet Volume 9.5 fL (7.4-10.4); Platelet Count 223 10x3/uL (130-400); RBC Distribution Width 12.2 % (11.5-14.5); Red Blood Cell (RBC) Count 3.31 mill/uL (4.70-6.10)
[2022-11-21] MEDS: Mometasone/Formoterol 200/5 60 PUFF INH SCH (06:56)
[2022-11-21 06:58] LABS: ALT (SGPT) 10 U/L (8-55); AST (SGOT) 12 U/L (5-34); Albumin 3.6 g/dL (3.4-4.8); Alkaline Phosphatase 59 U/L (40-110); Anion Gap 17 mmol/L (10-20); BUN (Urea Nitrogen) 12 mg/dL (8.4-25.7); Bilirubin, Total 0.7 mg/dL (0.2-1.2); Calc. Creatinine Clearance 66 mL/min (70-130); Calcium 9.4 mg/dL (7.8-10.44); Carbon Dioxide 28 mmol/L (23-31); Chloride 99 mmol/L (98-107); Estimated GFR 93; Globulin 2.8 g/dL (2.4-3.5); Glucose 160 mg/dL (83-110); Protein, Total 6.4 g/dL (5.8-8.1); Sodium 140 mmol/L (136-145)
[2022-11-21] MEDS: Ipratropium/Albuterol 3 ML NEB NEB SCH ×2 (06:59→12:54)
[2022-11-21 07:06] LABS: Delete Auto Diff?? YES; Manual Diff?? YES
[2022-11-21 08:24] LABS: Band 11 % (5-11); CellaVision Operator ID LAB.GE; Lymphocytes 2 % (21-51); Monocytes 5 % (0-10); Neutrophil 82 % (42-75); Platelet Adequacy Comment Platelets Normal; Polychromasia SLIGHT = 2-3 cells HPF (0-2); Total Cell Count 100
[2022-11-21 15:45] VITALS: BP 169/78; TEMP 98.4
[2022-11-22] MEDS ORDERED: fentaNYL 50 mcg/hour Patch TD SCH (09:00)
== END 2022-11-21 17:53 | disposition home or self-care (01) | DRG 193 ==
LOC: ERS 05:40 → ERHOLD 09:39 → T4-B 12:20 → OBSVTOIN 11-20 14:24
PROVIDERS: ADMIT Internal Medicine; ATTEND Hospitalist
DX: J18.9 Pneumonia, unspecified organism (principal); J96.21 Acute and chronic respiratory failure with hypoxia; C34.90 Malignant neoplasm of unspecified part of unspecified bronchus or lung; C78.7 Secondary malignant neoplasm of liver and intrahepatic bile duct; C79.51 Secondary malignant neoplasm of bone; E44.0 Moderate protein-calorie malnutrition; Z68.1 Body mass index [BMI] 19.9 or less, adult; N39.0 Urinary tract infection, site not specified; E83.42 Hypomagnesemia; D63.0 Anemia in neoplastic disease; J44.9 Chronic obstructive pulmonary disease, unspecified; Z20.822 Contact with and (suspected) exposure to COVID-19; Z98.890 Other specified postprocedural states; Z87.891 Personal history of nicotine dependence; Z79.899 Other long term (current) drug therapy
CPT/HCPCS: 36415; 71045; 71260; 80053; 81001; 83605; 83690; 83735; 83880; 84100; 84145; 84484; 85025; 87040; 87077; 87086; 87186; 87449; 87899; 93005; 94640; 94664; 96365; 96367; 96368; 96375; C9113; J0295; J0456; J0696; J1642; J1650; J2405; J2920; J3475; J3490; J7050; J7620; Q9967

== ENCOUNTER 2022-12-13 09:30 | Outpatient (CLI) | payer OTHER | END 2022-12-13 09:31 | disposition home or self-care (01) | LOC: PET 09:30 | PROVIDERS: ATTEND Internal Medicine Hematology & Oncology | DX: C34.11 Malignant neoplasm of upper lobe, right bronchus or lung (principal); J92.9 Pleural plaque without asbestos; R94.8 Abnormal results of function studies of other organs and systems | CPT/HCPCS: 78815; A9552 ==

== ENCOUNTER 2022-12-26 08:42 | Outpatient (CLI) | payer OTHER | END 2022-12-26 08:43 | disposition home or self-care (01) | LOC: SCSMRI 08:42 | PROVIDERS: ATTEND Internal Medicine Hematology & Oncology | DX: C34.11 Malignant neoplasm of upper lobe, right bronchus or lung (principal) | CPT/HCPCS: 70553 ==

== ENCOUNTER 2023-03-05 02:39 | Inpatient (IN) | payer OTHER, MEDICAID ==
[2023-03-05 03:08] LABS: #Monocytes 0.3 thou/uL (0.11-0.59); #Neutrophils 1.7 thou/uL (1.40-6.50); %Basophils 0.3 % (0.0-1.0); %Eosinophils 0.7 % (0.0-10.0); %Lymphocytes 29.4 % (21.0-51.0); %Monocytes 10.9 % (0.0-10.0); %Neutrophils 57.7 % (42.0-75.0); Hematocrit 26.5 % (42.0-52.0); Hemoglobin 8.7 g/dL (14.0-18.0); Mean Corpuscular HGB CONC 32.8 g/dL (32.0-36.0); Mean Corpuscular Volume 103.5 fl (78.0-98.0); Mean Platelet Volume 9.2 fL (7.4-10.4); Platelet Count 121 10x3/uL (130-400); RBC Distribution Width 14.2 % (11.5-14.5); Red Blood Cell (RBC) Count 2.56 mill/uL (4.70-6.10); White Blood Cell (WBC) Count 2.9 10x3/uL (4.8-10.8)
[2023-03-05 03:34] LABS: ALT (SGPT) 12 U/L (8-55); AST (SGOT) 28 U/L (5-34); Albumin 3.8 g/dL (3.4-4.8); Alkaline Phosphatase 53 U/L (40-110); Anion Gap 20 mmol/L (10-20); BUN (Urea Nitrogen) 11 mg/dL (8.4-25.7); Bilirubin, Total 1.1 mg/dL (0.2-1.2); Calc. Creatinine Clearance 0 mL/min (70-130); Calcium 8.5 mg/dL (7.8-10.44); Carbon Dioxide 19 mmol/L (23-31); Chloride 100 mmol/L (98-107); Estimated GFR 94; Globulin 2.7 g/dL (2.4-3.5); Glucose 146 mg/dL (83-110); Potassium 3.4 mmol/L (3.5-5.1); Protein, Total 6.5 g/dL (5.8-8.1); Sodium 136 mmol/L (136-145)
[2023-03-05 03:38] LABS: Troponin I Less than 0.010 ng/mL (< 0.028)
[2023-03-05] MEDS ORDERED: Ciprofloxacin Lactate D5W 400 mg (200 mL) BAG ONE (04:53)
[2023-03-05] MEDS ORDERED: Ondansetron PF 4 MG/2 ML Vial IVP PRN (05:15)
[2023-03-05] MEDS ORDERED: Ondansetron ODT 4 MG TAB SL PRN (05:15)
[2023-03-05] MEDS ORDERED: Acetaminophen 325 MG TAB PO PRN (05:15)
[2023-03-05] MEDS ORDERED: metroNIDAZOLE 500 MG (100 mL) BAG ONE ×2 (06:02→13:03)
[2023-03-05 06:13] LABS: Lactic Acid 1.8 mmol/L (0.5-2.2)
[2023-03-05] MEDS: Sodium Chloride 0.9% 1,000 ML IV SCH ×4 (06:15→16:22)
[2023-03-05] MEDS: metroNIDAZOLE 500 MG in Premix 1 BAG IVPB SCH ×2 (06:16→13:09)
[2023-03-05 06:22] LABS: Troponin I 0.018 ng/mL (< 0.028)
[2023-03-05] MEDS ORDERED: Iopamidol-370 76% 500 ML MDV (1 ML CHARGE) ONE (09:00)
[2023-03-05] MEDS ORDERED: LevoFLOXacin 750 mg/D5W 150 ml Premix Bag ONE (10:01)
[2023-03-05] MEDS: LevoFLOXacin 750 mg/D5W 750 MG in Premix 1 BAG IVPB SCH (10:22)
[2023-03-05] MEDS ORDERED: Acetaminophen 325 MG TAB ONE (10:58)
[2023-03-05] MEDS ORDERED: Morphine 2 MG/ML VIAL ONE (11:34)
[2023-03-05] MEDS ORDERED: Morphine 2 MG/ML VIAL SLOW IVP SCH (11:45)
[2023-03-05] MEDS ORDERED: fentaNYL 50 mcg/hour Patch TD SCH (12:00)
[2023-03-05 12:40] LABS: Bilirubin Negative (Negative); Blood, Urine Trace (Negative); Clarity Clear (Clear); Glucose, Urine (Dipstick) Normal (Negative); Ketone, Urine 20 mg/dL (Negative); Leukocyte Negative Leu/uL (Negative); Nitrite Negative (Negative); Protein, Urine (Dipstick) Negative (Neg-Trace); RBC/HPF 0-3 HPF (0-3); Specific Gravity, Urine 1.016 (1.002-1.036); Squamous Epithelial None Seen HPF (0-3); Urobilinogen Normal mg/dL (Less than 2); WBC/HPF 0-3 HPF (0-3); pH, Urine 5.5 (5.0-9.0)
[2023-03-05 12:49] LABS: Bacteria/HPF 1+ HPF (None Seen)
[2023-03-05] MEDS ORDERED: HYDROcodone/Acetaminophen 10/325 mg Tablet ONE ×2 (13:27→17:33)
[2023-03-05] MEDS: HYDROcodone/Acetaminophen 10/325 mg Tablet PO PRN ×3 (13:31→20:55)
[2023-03-05 13:32] LABS: Troponin I 0.012 ng/mL (< 0.028)
[2023-03-05] MEDS: Mometasone/Formoterol 200/5 60 PUFF INH SCH (20:04)
[2023-03-05] MEDS: Melatonin 3 MG TAB PO PRN (22:32)
[2023-03-06] MEDS: Sodium Chloride 0.9% 1,000 ML IV SCH ×4 (00:07→22:36)
[2023-03-06] MEDS: HYDROcodone/Acetaminophen 10/325 mg Tablet PO PRN ×5 (00:52→21:42)
[2023-03-06] MEDS: Mometasone/Formoterol 200/5 60 PUFF INH SCH ×2 (07:07→19:07)
[2023-03-06] MEDS: LevoFLOXacin 750 mg/D5W 750 MG in Premix 1 BAG IVPB SCH (09:31)
[2023-03-06] MEDS ORDERED: Potassium Chloride 20 MEQ TAB PO SCH (15:30)
[2023-03-06] MEDS ORDERED: Loperamide HCl 2 MG CAP PO SCH (21:00)
[2023-03-06] MEDS: Guaifenesin DM 100-10/5 ML UDCUP PO PRN (21:41)
[2023-03-06] MEDS: Melatonin 3 MG TAB PO PRN (21:42)
[2023-03-07] MEDS: HYDROcodone/Acetaminophen 10/325 mg Tablet PO PRN ×3 (02:21→21:41)
[2023-03-07] MEDS: Sodium Chloride 0.9% 1,000 ML IV SCH ×2 (07:51→19:20)
[2023-03-07] MEDS: Mometasone/Formoterol 200/5 60 PUFF INH SCH ×2 (08:19→19:48)
[2023-03-07] MEDS: LevoFLOXacin 750 mg/D5W 750 MG in Premix 1 BAG IVPB SCH (09:17)
[2023-03-07] MEDS: Carvedilol 6.25 MG TAB PO SCH ×3 (14:40→21:40)
[2023-03-07] MEDS ORDERED: Carvedilol 6.25 MG TAB PO SCH (17:00)
[2023-03-07 18:10] LABS: ALT (SGPT) 11 U/L (8-55); AST (SGOT) 29 U/L (5-34); Albumin 3.2 g/dL (3.4-4.8); Alkaline Phosphatase 49 U/L (40-110); Anion Gap 14 mmol/L (10-20); BUN (Urea Nitrogen) Less than 4 mg/dL (8.4-25.7); Bilirubin, Total 0.5 mg/dL (0.2-1.2); Calc. Creatinine Clearance 79 mL/min (70-130); Calcium 7.7 mg/dL (7.8-10.44); Carbon Dioxide 25 mmol/L (23-31); Chloride 93 mmol/L (98-107); Estimated GFR 100; Globulin 2.5 g/dL (2.4-3.5); Glucose 92 mg/dL (83-110); Potassium 3.7 mmol/L (3.5-5.1); Protein, Total 5.7 g/dL (5.8-8.1); Sodium 128 mmol/L (136-145)
[2023-03-07] MEDS: Melatonin 3 MG TAB PO PRN (21:40)
[2023-03-07] MEDS ORDERED: Loperamide HCl 2 MG CAP PO PRN (21:48)
[2023-03-08] MEDS ORDERED: Ondansetron ODT 4 MG TAB PO SCH (01:15)
[2023-03-08] MEDS: Sodium Chloride 0.9% 1,000 ML IV SCH ×4 (02:20→23:04)
[2023-03-08 06:56] LABS: Anion Gap 9 mmol/L (10-20); BUN (Urea Nitrogen) Less than 4 mg/dL (8.4-25.7); Calc. Creatinine Clearance 81 mL/min (70-130); Calcium 7.7 mg/dL (7.8-10.44); Carbon Dioxide 27 mmol/L (23-31); Chloride 89 mmol/L (98-107); Estimated GFR 100; Glucose 88 mg/dL (83-110); Potassium 3.4 mmol/L (3.5-5.1); Sodium 122 mmol/L (136-145)
[2023-03-08] MEDS: Mometasone/Formoterol 200/5 60 PUFF INH SCH ×2 (07:41→19:29)
[2023-03-08] MEDS: Ondansetron PF 4 MG/2 ML Vial IVP PRN ×2 (09:14→16:59)
[2023-03-08] MEDS: LevoFLOXacin 750 mg/D5W 750 MG in Premix 1 BAG IVPB SCH (09:20)
[2023-03-08] MEDS: Carvedilol 6.25 MG TAB PO SCH ×2 (09:26→16:58)
[2023-03-08] MEDS: HYDROcodone/Acetaminophen 10/325 mg Tablet PO PRN ×3 (09:27→21:03)
[2023-03-08] MEDS: Potassium Chloride 20 MEQ in Premix 1 BAG IVPB SCH ×2 (15:18→18:23)
[2023-03-08 18:13] LABS: Magnesium 0.7 mg/dL (1.6-2.6)
[2023-03-08] MEDS: Loperamide HCl 2 MG CAP PO PRN (21:03)
[2023-03-08] MEDS: Melatonin 3 MG TAB PO PRN (21:03)
[2023-03-09] MEDS: HYDROcodone/Acetaminophen 10/325 mg Tablet PO PRN ×6 (01:51→22:11)
[2023-03-09] MEDS ORDERED: Electrolyte Replacement Protocol 1 EACH FS SCH (03:00)
[2023-03-09] MEDS ORDERED: Magnesium Sulfate In Water 4 GM in Premix 1 BAG IVPB SCH (03:00)
[2023-03-09] MEDS ORDERED: Morphine 2 MG/ML VIAL SLOW IVP SCH (03:00)
[2023-03-09] MEDS: Ondansetron PF 4 MG/2 ML Vial IVP PRN (03:30)
[2023-03-09 07:09] LABS: Hematocrit 22.4 % (42.0-52.0); Hemoglobin 7.9 g/dL (14.0-18.0); Manual Diff?? YES; Mean Corpuscular HGB CONC 35.3 g/dL (32.0-36.0); Mean Corpuscular Hemoglobin 32.5 pg (27.0-31.0); Mean Corpuscular Volume 92.2 fl (78.0-98.0); Mean Platelet Volume 9.8 fL (7.4-10.4); RBC Distribution Width 13.1 % (11.5-14.5); Red Blood Cell (RBC) Count 2.43 mill/uL (4.70-6.10); White Blood Cell (WBC) Count 3.9 10x3/uL (4.8-10.8)
[2023-03-09 07:31] LABS: Anion Gap 8 mmol/L (10-20); BUN (Urea Nitrogen) 4 mg/dL (8.4-25.7); Calc. Creatinine Clearance 81 mL/min (70-130); Calcium 7.7 mg/dL (7.8-10.44); Carbon Dioxide 27 mmol/L (23-31); Chloride 85 mmol/L (98-107); Estimated GFR 100; Glucose 89 mg/dL (83-110); Potassium 3.9 mmol/L (3.5-5.1)
[2023-03-09 07:38] LABS: Platelet Count 80 10x3/uL (130-400)
[2023-03-09 07:40] LABS: Delete Auto Diff?? YES
[2023-03-09 07:45] LABS: Sodium 116 mmol/L (136-145)
[2023-03-09 07:46] LABS: Critical Call Chemistry NUR.KLH1@0745
[2023-03-09] MEDS: Mometasone/Formoterol 200/5 60 PUFF INH SCH ×2 (07:54→19:35)
[2023-03-09 08:22] LABS: Magnesium 1.7 mg/dL (1.6-2.6); Phosphorus 3.1 mg/dL (2.3-4.7)
[2023-03-09] MEDS: Carvedilol 6.25 MG TAB PO SCH ×2 (08:42→17:06)
[2023-03-09] MEDS: Sodium Chloride 0.9% 1,000 ML IV SCH ×2 (08:43→17:07)
[2023-03-09] MEDS ORDERED: FLU VACC QS2023(65UP)/MF59C/PF 60 MCG/0.5 ML SYRINGE IM ONE (09:00)
[2023-03-09 09:01] LABS: Burr Cells SLIGHT = 2-5 cells HPF (0-1); CellaVision Operator ID LAB.NR; Eosinophils 5 % (0-10); Hypochromia SLIGHT = 6-15 cells HPF (0-5); Large Platelets 1.9 % (0-5); Lymphocytes 41 % (21-51); Monocytes 17 % (0-10); Neutrophil 38 % (42-75); Platelet Adequacy Comment Platelets Decreased; Poikilocytosis SLIGHT = 6-15 cells HPF (0-5); Polychromasia SLIGHT = 2-3 cells HPF (0-2); Smudge Cells 10.7 %; Total Cell Count 103
[2023-03-09] MEDS: Loperamide HCl 2 MG CAP PO PRN ×3 (14:19→22:12)
[2023-03-09] MEDS: Guaifenesin DM 100-10/5 ML UDCUP PO PRN (18:12)
[2023-03-09] MEDS: Sodium Chloride 1 GM TAB PO SCH (20:32)
[2023-03-10] MEDS: Sodium Chloride 0.9% 1,000 ML IV SCH ×2 (00:26→08:50)
[2023-03-10] MEDS: HYDROcodone/Acetaminophen 10/325 mg Tablet PO PRN ×5 (02:12→19:59)
[2023-03-10 06:05] LABS: Hematocrit 20.8 % (42.0-52.0); Hemoglobin 7.5 g/dL (14.0-18.0); Manual Diff?? YES; Mean Corpuscular HGB CONC 36.1 g/dL (32.0-36.0); Mean Corpuscular Hemoglobin 33.2 pg (27.0-31.0); Mean Platelet Volume 9.8 fL (7.4-10.4); RBC Distribution Width 13.3 % (11.5-14.5); Red Blood Cell (RBC) Count 2.26 mill/uL (4.70-6.10)
[2023-03-10 06:10] LABS: Delete Auto Diff?? YES; Platelet Count 77 10x3/uL (130-400)
[2023-03-10 06:28] LABS: Anisocytosis SLIGHT = 6-15 cells HPF (0-5); CellaVision Operator ID LAB.CLH1; Eosinophils 5 % (0-10); Hypochromia SLIGHT = 6-15 cells HPF (0-5); Lymphocytes 33 % (21-51); Monocytes 20 % (0-10); Neutrophil 42 % (42-75); Platelet Adequacy Comment Platelets Decreased; Total Cell Count 100
[2023-03-10 06:35] LABS: ALT (SGPT) 12 U/L (8-55); AST (SGOT) 27 U/L (5-34); Alkaline Phosphatase 46 U/L (40-110); Anion Gap 7 mmol/L (10-20); BUN (Urea Nitrogen) 4 mg/dL (8.4-25.7); Bilirubin, Total 0.5 mg/dL (0.2-1.2); Calc. Creatinine Clearance 83 mL/min (70-130); Calcium 7.5 mg/dL (7.8-10.44); Carbon Dioxide 28 mmol/L (23-31); Chloride 88 mmol/L (98-107); Estimated GFR 101; Globulin 2.2 g/dL (2.4-3.5); Glucose 88 mg/dL (83-110); Potassium 3.9 mmol/L (3.5-5.1); Protein, Total 5.2 g/dL (5.8-8.1)
[2023-03-10 06:44] LABS: Sodium 119 mmol/L (136-145)
[2023-03-10 07:36] LABS: Adenovirus F 40-41 Not Detected (Not Detected); Astrovirus Not Detected (Not Detected); C. difficile toxin A+B Not Detected (Not Detected); Campylobacter by PCR Not Detected (Not Detected); Cryptosporidium Not Detected (Not Detected); Cyclospora cayetanensis Not Detected (Not Detected); Entamoeba histolytica Not Detected (Not Detected); Enteroaggregative E. coli Not Detected (Not Detected); Enteropathogenic E. coli Not Detected (Not Detected); Enterotoxigenic E. coli Not Detected (Not Detected); Giardia lamblia Not Detected (Not Detected); Norovirus GI-GII Not Detected (Not Detected); Plesiomonas shigelloides Not Detected (Not Detected); Rotavirus A Not Detected (Not Detected); Salmonella Not Detected (Not Detected); Sapovirus Not Detected (Not Detected); Shiga-toxin-producing E coli Not Detected (Not Detected); Shigella/Enteroinvasive E coli Not Detected (Not Detected); Vibrio Not Detected (Not Detected); Vibrio cholerae Not Detected (Not Detected); Yersinia enterocolitica Not Detected (Not Detected)
[2023-03-10] MEDS: Sodium Chloride 1 GM TAB PO SCH ×3 (07:58→20:00)
[2023-03-10] MEDS: Carvedilol 6.25 MG TAB PO SCH ×2 (08:49→17:13)
[2023-03-10 14:34] VITALS: BMI 18.8
[2023-03-10] MEDS: Mometasone/Formoterol 200/5 60 PUFF INH SCH ×2 (15:00→19:28)
[2023-03-11] MEDS: Melatonin 3 MG TAB PO PRN (00:26)
[2023-03-11] MEDS: HYDROcodone/Acetaminophen 10/325 mg Tablet PO PRN ×6 (00:26→23:56)
[2023-03-11 05:33] LABS: Manual Diff?? YES; Mean Corpuscular HGB CONC 34.8 g/dL (32.0-36.0); Mean Corpuscular Hemoglobin 33.3 pg (27.0-31.0); Mean Corpuscular Volume 95.8 fl (78.0-98.0); Mean Platelet Volume 9.6 fL (7.4-10.4); RBC Distribution Width 14.1 % (11.5-14.5); White Blood Cell (WBC) Count 5.2 10x3/uL (4.8-10.8)
[2023-03-11 05:35] LABS: Delete Auto Diff?? YES; Platelet Count 88 10x3/uL (130-400)
[2023-03-11 05:53] LABS: Phosphorus 3.1 mg/dL (2.3-4.7)
[2023-03-11 05:55] LABS: Anion Gap 12 mmol/L (10-20); BUN (Urea Nitrogen) 6 mg/dL (8.4-25.7); Calc. Creatinine Clearance 76 mL/min (70-130); Calcium 8.3 mg/dL (7.8-10.44); Carbon Dioxide 31 mmol/L (23-31); Chloride 85 mmol/L (98-107); Estimated GFR 98; Glucose 89 mg/dL (83-110); Magnesium 1.1 mg/dL (1.6-2.6); Potassium 4.5 mmol/L (3.5-5.1); Sodium 123 mmol/L (136-145)
[2023-03-11 06:07] LABS: Band 1 % (5-11); CellaVision Operator ID LAB.CLH1; Eosinophils 1 % (0-10); Hypochromia SLIGHT = 6-15 cells HPF (0-5); Large Platelets 2.9 % (0-5); Lymphocytes 30 % (21-51); Monocytes 21 % (0-10); Neutrophil 45 % (42-75); Platelet Adequacy Comment Platelets Decreased; Polychromasia SLIGHT = 2-3 cells HPF (0-2); Reactive Lymphocytes 2 % (0-10); Target Cells SLIGHT = 2-5 cells HPF (0-1); Total Cell Count 102
[2023-03-11] MEDS: Mometasone/Formoterol 200/5 60 PUFF INH SCH ×2 (07:37→19:03)
[2023-03-11] MEDS ORDERED: Magnesium Sulfate In Water 4 GM in Premix 1 BAG IVPB SCH (08:00)
[2023-03-11] MEDS: Carvedilol 6.25 MG TAB PO SCH ×2 (09:36→18:47)
[2023-03-11] MEDS: Sodium Chloride 1 GM TAB PO SCH ×3 (09:36→21:34)
[2023-03-11] MEDS ORDERED: Polyethylene Glycol 3350 17 GM Packet PO PRN (10:45)
[2023-03-11] MEDS ORDERED: predniSONE 5 MG TAB PO SCH (11:00)
[2023-03-12] MEDS: HYDROcodone/Acetaminophen 10/325 mg Tablet PO PRN ×5 (04:25→21:39)
[2023-03-12 05:51] LABS: Hematocrit 20.9 % (42.0-52.0); Hemoglobin 7.4 g/dL (14.0-18.0); Manual Diff?? YES; Mean Corpuscular HGB CONC 35.4 g/dL (32.0-36.0); Mean Corpuscular Hemoglobin 33.9 pg (27.0-31.0); Mean Corpuscular Volume 95.9 fl (78.0-98.0); Platelet Count 94 10x3/uL (130-400); RBC Distribution Width 14.3 % (11.5-14.5); Red Blood Cell (RBC) Count 2.18 mill/uL (4.70-6.10)
[2023-03-12 05:56] LABS: Delete Auto Diff?? YES
[2023-03-12 06:24] LABS: Anion Gap 11 mmol/L (10-20); BUN (Urea Nitrogen) 8 mg/dL (8.4-25.7); Calc. Creatinine Clearance 77 mL/min (70-130); Calcium 8.6 mg/dL (7.8-10.44); Carbon Dioxide 33 mmol/L (23-31); Chloride 86 mmol/L (98-107); Estimated GFR 99; Glucose 83 mg/dL (83-110); Magnesium 1.3 mg/dL (1.6-2.6); Phosphorus 3.2 mg/dL (2.3-4.7); Potassium 4.1 mmol/L (3.5-5.1); Sodium 126 mmol/L (136-145)
[2023-03-12 06:26] LABS: Anisocytosis SLIGHT = 6-15 cells HPF (0-5); CellaVision Operator ID LAB.CLH1; Hypochromia SLIGHT = 6-15 cells HPF (0-5); Lymphocytes 27 % (21-51); Metamyelocyte 1 % (0-0); Monocytes 19 % (0-10); Neutrophil 52 % (42-75); Platelet Adequacy Comment Platelets Decreased; Polychromasia SLIGHT = 2-3 cells HPF (0-2); Promyelocytes 1 % (0-0); Stomatocytes SLIGHT = 2-5 cells HPF (0-1); Target Cells SLIGHT = 2-5 cells HPF (0-1); Total Cell Count 100
[2023-03-12] MEDS: Mometasone/Formoterol 200/5 60 PUFF INH SCH ×2 (08:09→19:23)
[2023-03-12] MEDS: predniSONE 5 MG TAB PO SCH (08:52)
[2023-03-12] MEDS: Sodium Chloride 1 GM TAB PO SCH ×3 (08:52→20:53)
[2023-03-12] MEDS: Carvedilol 6.25 MG TAB PO SCH ×2 (08:52→17:09)
[2023-03-12] MEDS ORDERED: Magnesium Sulfate In Water 4 GM in Premix 1 BAG IVPB SCH (09:15)
[2023-03-12] MEDS ORDERED: Magnesium 2 GM/50 ML(in water) 2 GM in Premix 1 BAG IVPB SCH (09:15)
[2023-03-12] MEDS ORDERED: Electrolyte Replacement Protocol FS PRN (09:15)
[2023-03-12] MEDS: Lactated Ringer's 1,000 ML IV SCH (10:31)
[2023-03-12] MEDS: Acetaminophen 325 MG TAB PO PRN (11:58)
[2023-03-12] MEDS: Melatonin 3 MG TAB PO PRN ×2 (21:40)
[2023-03-13] MEDS: HYDROcodone/Acetaminophen 10/325 mg Tablet PO PRN ×2 (05:52→10:04)
[2023-03-13 06:40] LABS: #Eosinphils 0.2 thou/uL (0.0-0.7); #Monocytes 1.5 thou/uL (0.11-0.59); #Neutrophils 2.8 thou/uL (1.40-6.50); %Basophils 0.2 % (0.0-1.0); %Eosinophils 2.5 % (0.0-10.0); %Lymphocytes 30.4 % (21.0-51.0); %Monocytes 23.2 % (0.0-10.0); %Neutrophils 43.4 % (42.0-75.0); Hematocrit 21.6 % (42.0-52.0); Hemoglobin 7.5 g/dL (14.0-18.0); Mean Corpuscular HGB CONC 34.7 g/dL (32.0-36.0); Mean Corpuscular Hemoglobin 33.9 pg (27.0-31.0); Mean Corpuscular Volume 97.7 fl (78.0-98.0); Mean Platelet Volume 9.9 fL (7.4-10.4); Platelet Count 129 10x3/uL (130-400); RBC Distribution Width 14.9 % (11.5-14.5); Red Blood Cell (RBC) Count 2.21 mill/uL (4.70-6.10); White Blood Cell (WBC) Count 6.4 10x3/uL (4.8-10.8)
[2023-03-13 06:42] LABS: Manual Diff?? YES
[2023-03-13] MEDS: Mometasone/Formoterol 200/5 60 PUFF INH SCH (07:36)
[2023-03-13 07:43] LABS: Anion Gap 11 mmol/L (10-20); BUN (Urea Nitrogen) 7 mg/dL (8.4-25.7); Calc. Creatinine Clearance 77 mL/min (70-130); Calcium 8.6 mg/dL (7.8-10.44); Carbon Dioxide 33 mmol/L (23-31); Chloride 88 mmol/L (98-107); Estimated GFR 99; Glucose 80 mg/dL (83-110); Magnesium 1.4 mg/dL (1.6-2.6); Potassium 4.3 mmol/L (3.5-5.1); Sodium 128 mmol/L (136-145)
[2023-03-13 08:36] LABS: CellaVision Operator ID LAB.GE; Eosinophils 2 % (0-10); Lymphocytes 18 % (21-51); Monocytes 11 % (0-10); Neutrophil 68 % (42-75); Platelet Adequacy Comment Platelets Decreased; Polychromasia SLIGHT = 2-3 cells HPF (0-2); Schistocytes SLIGHT = 2-5 cells HPF (0-1); Total Cell Count 100
[2023-03-13] MEDS: Sodium Chloride 1 GM TAB PO SCH ×2 (08:45→15:27)
[2023-03-13] MEDS: Carvedilol 6.25 MG TAB PO SCH (08:45)
[2023-03-13] MEDS: predniSONE 5 MG TAB PO SCH (08:45)
[2023-03-13 08:46] VITALS: BP 93/50
[2023-03-13 09:03] VITALS: TEMP 97.3
[2023-03-13] MEDS ORDERED: Magnesium Sulfate 4 GM in Sodium Chloride 0.9% 250 ML 250 ML IVPB SCH (09:15)
[2023-03-13] MEDS ORDERED: Magnesium Sulfate In Water 4 GM in Premix 1 BAG IVPB SCH (09:30)
[2023-03-13] MEDS: Lactated Ringer's 1,000 ML IV SCH ×3 (10:05→16:09)
[2023-03-13] MEDS: Acetaminophen 325 MG TAB PO PRN (15:27)
== END 2023-03-13 16:55 | disposition home or self-care (01) | DRG 644 ==
LOC: ERS 02:39 → ERHOLD 05:04 → 2NO 19:51 → MSONC 03-06 21:32 → OBSVTOIN 03-07 17:01
PROVIDERS: ADMIT Student in an Organized Health Care Education/Training Program; ATTEND Internal Medicine
DX: E22.2 Syndrome of inappropriate secretion of antidiuretic hormone (principal); C34.90 Malignant neoplasm of unspecified part of unspecified bronchus or lung; E87.20 Acidosis, unspecified; E44.0 Moderate protein-calorie malnutrition; Z68.1 Body mass index [BMI] 19.9 or less, adult; K52.1 Toxic gastroenteritis and colitis; J44.9 Chronic obstructive pulmonary disease, unspecified; I45.10 Unspecified right bundle-branch block; K75.4 Autoimmune hepatitis; D64.9 Anemia, unspecified; R62.7 Adult failure to thrive; E83.42 Hypomagnesemia; T36.95XA Adverse effect of unspecified systemic antibiotic, initial encounter; Z79.899 Other long term (current) drug therapy; Z98.890 Other specified postprocedural states; Z87.891 Personal history of nicotine dependence
CPT/HCPCS: 36415; 70450; 71045; 71275; 72125; 74177; 80048; 80053; 81001; 82533; 83605; 83735; 83930; 83935; 84100; 84443; 84484; 84550; 85025; 86850; 86900; 86901; 87040; 87324; 87449; 87507; 93005; 93306; 94664; 94760; 96365; 96367; J0744; J1642; J1956; J2272; J2405; J3475; J3480; J7050; J7120; J7512; Q0162; Q9967

== ENCOUNTER 2023-07-11 09:37 | Outpatient (CLI) | payer OTHER | END 2023-07-11 09:38 | disposition home or self-care (01) | LOC: PET 09:37 | PROVIDERS: ATTEND Internal Medicine Hematology & Oncology | DX: C34.11 Malignant neoplasm of upper lobe, right bronchus or lung (principal); R91.8 Other nonspecific abnormal finding of lung field | CPT/HCPCS: 78815; A9552 ==

== ENCOUNTER 2023-07-22 08:46 | Inpatient (IN) | payer MEDICARE, OTHER ==
[2023-07-22] MEDS ORDERED: Morphine 4 MG/ML VIAL ONE (09:12)
[2023-07-22] MEDS ORDERED: Ondansetron PF 4 MG/2 ML Vial ONE (09:12)
[2023-07-22 10:04] LABS: #Basophils 0.06 10x3/uL (0.0-0.2); %Basophils 0.7 % (0.0-1.0); %Eosinophils 5.3 % (0.0-10.0); %Lymphocytes 25.1 % (21.0-51.0); %Monocytes 10.6 % (0.0-10.0); %Neutrophils 58.1 % (42.0-75.0); Hematocrit 28.4 % (42.0-52.0); Hemoglobin 8.8 g/dL (14.0-18.0); Mean Corpuscular Hemoglobin 31.2 pg (27.0-31.0); Mean Corpuscular Volume 100.7 fL (78.0-98.0); Mean Platelet Volume 8.9 fL (7.4-10.4); Platelet Count 254 10x3/uL (130-400); Red Blood Cell (RBC) Count 2.82 mill/uL (4.70-6.10)
[2023-07-22 10:18] LABS: INR-International Normal Ratio 1.2; PTT 37.4 sec (22.9-36.1); Prothrombin Time 15.1 sec (12.0-14.7)
[2023-07-22 10:23] LABS: Troponin I Less than 0.010 ng/mL (< 0.028)
[2023-07-22 10:30] LABS: ALT (SGPT) 12 U/L (8-55); AST (SGOT) 40 U/L (5-34); Alkaline Phosphatase 62 U/L (40-110); Anion Gap 21 mmol/L (10-20); BUN (Urea Nitrogen) 7 mg/dL (8.4-25.7); Bilirubin, Total 0.5 mg/dL (0.2-1.2); Calc. Creatinine Clearance 0 mL/min (70-130); Calcium 8.7 mg/dL (7.8-10.44); Carbon Dioxide 18 mmol/L (23-31); Chloride 103 mmol/L (98-107); Estimated GFR 92; Globulin 3.3 g/dL (2.4-3.5); Glucose 162 mg/dL (83-110); Lipase 6 U/L (8-78); Magnesium 0.8 mg/dL (1.6-2.6); Potassium 4.6 mmol/L (3.5-5.1); Protein, Total 6.3 g/dL (5.8-8.1); Sodium 137 mmol/L (136-145)
[2023-07-22 10:42] LABS: Influenza A by NAA Not Detected (NotDetected); Influenza B by NAA Not Detected (NotDetected); SARS-CoV-2 NAA Rapid Test Not Detected (NotDetected)
[2023-07-22] MEDS ORDERED: Magnesium 2 GM/50 ML BAG (IN WATER) ONE (10:43)
[2023-07-22 11:06] LABS: Bacteria/HPF None Seen HPF (None Seen); Bilirubin Negative (Negative); Blood, Urine Trace (Negative); CAUTI Indications for Culture Immunosuppressed; Clarity Clear (Clear); Glucose, Urine (Dipstick) 100 mg/dL (Negative); Ketone, Urine Greater than 150 mg/dL (Negative); Leukocyte Negative Leu/uL (Negative); Nitrite Negative (Negative); Protein, Urine (Dipstick) Negative (Neg-Trace); RBC/HPF 0-3 HPF (0-3); Specific Gravity, Urine 1.012 (1.002-1.036); Squamous Epithelial 0-3 HPF (0-3); Urobilinogen Normal mg/dL (Less than 2); WBC/HPF 0-3 HPF (0-3); pH, Urine 5.5 (5.0-9.0)
[2023-07-22 11:08] LABS: Urine Culture Reflex Yes Yes
[2023-07-22 11:30] LABS: Actual Bicarbonate (HCO3v) 18.4 mEq/L (22-28); Calcium, Ionized (venous) 1.08 mmol/L (1.16-1.32); Chloride (VBG) 101 mmol/L (98-106); Hematocrit-VBG 31 % (42.0-52.0); Hemoglobin (Hb) 10.7 g/dL (12.6-17.4); Potassium (VBG) 4.49 mmol/L (3.70-5.30); Sodium 135 mmol/L (133-146); pH (venous) 7.268 (7.32-7.43)
[2023-07-22] MEDS ORDERED: HYDROcodone/Acetaminophen 5/325 mg Tablet ONE (12:48)
[2023-07-22] MEDS ORDERED: Bisacodyl 5 MG TAB PO PRN (13:25)
[2023-07-22] MEDS ORDERED: Ondansetron PF 4 MG/2 ML Vial IVP PRN (13:25)
[2023-07-22] MEDS ORDERED: Ondansetron ODT 4 MG TAB PO PRN (13:25)
[2023-07-22] MEDS ORDERED: Acetaminophen 650 MG Suppository PR PRN (13:25)
[2023-07-22] MEDS ORDERED: Senokot S 8.6-50 MG TAB PO PRN (13:25)
[2023-07-22 13:56] VITALS: BMI 18.8
[2023-07-22 15:14] LABS: Alcohol Less than 10.0 mg/dL (Less than 10); Anion Gap 17 mmol/L (10-20); BUN (Urea Nitrogen) 5 mg/dL (8.4-25.7); Calc. Creatinine Clearance 68 mL/min (70-130); Calcium 8.8 mg/dL (7.8-10.44); Carbon Dioxide 22 mmol/L (23-31); Chloride 104 mmol/L (98-107); Estimated GFR 95; Glucose 63 mg/dL (83-110); Magnesium 1.2 mg/dL (1.6-2.6); Potassium 4.5 mmol/L (3.5-5.1); Salicylate Less than 8.0 mg/dL (15.0-30.0); Sodium 138 mmol/L (136-145)
[2023-07-22] MEDS: Lactated Ringer's 1,000 ML IV SCH (16:09)
[2023-07-22] MEDS: HYDROcodone/Acetaminophen 10/325 mg Tablet PO PRN (16:16)
[2023-07-22] MEDS: Magnesium 2 GM/50 ML(in water) 2 GM in Premix 1 BAG IVPB SCH (16:45)
[2023-07-22] MEDS ORDERED: Dexamethasone 4 MG TAB PO SCH (21:00)
[2023-07-22 21:34] LABS: Potassium, Urine 17.4 mmol/L
[2023-07-23 05:03] LABS: #Basophils 0.04 10x3/uL (0.0-0.2); %Basophils 0.5 % (0.0-1.0); %Eosinophils 7.4 % (0.0-10.0); %Lymphocytes 37.6 % (21.0-51.0); %Monocytes 11.9 % (0.0-10.0); %Neutrophils 42.5 % (42.0-75.0); Hematocrit 26.1 % (42.0-52.0); Hemoglobin 8.5 g/dL (14.0-18.0); Mean Corpuscular HGB CONC 32.6 g/dL (32.0-36.0); Mean Corpuscular Hemoglobin 31.1 pg (27.0-31.0); Mean Corpuscular Volume 95.6 fL (78.0-98.0); Mean Platelet Volume 8.7 fL (7.4-10.4); Platelet Count 211 10x3/uL (130-400); RBC Distribution Width 13.7 % (11.5-14.5); Red Blood Cell (RBC) Count 2.73 mill/uL (4.70-6.10)
[2023-07-23 05:45] LABS: Anion Gap 16 mmol/L (10-20); BUN (Urea Nitrogen) 4 mg/dL (8.4-25.7); Calc. Creatinine Clearance 72 mL/min (70-130); Calcium 8.3 mg/dL (7.8-10.44); Carbon Dioxide 19 mmol/L (23-31); Chloride 103 mmol/L (98-107); Estimated GFR 97; Glucose 84 mg/dL (83-110); Potassium 4.1 mmol/L (3.5-5.1); Sodium 134 mmol/L (136-145)
[2023-07-23] MEDS: Folic Acid 1 MG TAB PO SCH (08:33)
[2023-07-23] MEDS: Acetaminophen 325 MG TAB PO PRN (08:33)
[2023-07-23] MEDS: Pantoprazole DR 40 MG TAB PO SCH (08:34)
[2023-07-23] MEDS: HYDROcodone/Acetaminophen 10/325 mg Tablet PO PRN (10:42)
[2023-07-23] MEDS ORDERED: Magnevist 469MG/ML 20 ML VIAL ONE (11:41)
[2023-07-23 18:01] VITALS: BMI 18.8
[2023-07-23] MEDS: Mirtazapine 15 MG TAB PO SCH (20:07)
[2023-07-24 05:09] LABS: #Basophils 0.05 10x3/uL (0.0-0.2); %Basophils 0.8 % (0.0-1.0); %Eosinophils 8.5 % (0.0-10.0); %Lymphocytes 36.6 % (21.0-51.0); %Monocytes 10.9 % (0.0-10.0); %Neutrophils 43.2 % (42.0-75.0); Hematocrit 25.5 % (42.0-52.0); Hemoglobin 8.7 g/dL (14.0-18.0); Mean Corpuscular HGB CONC 34.1 g/dL (32.0-36.0); Mean Corpuscular Hemoglobin 30.7 pg (27.0-31.0); Mean Corpuscular Volume 90.1 fL (78.0-98.0); Mean Platelet Volume 9.3 fL (7.4-10.4); Platelet Count 218 10x3/uL (130-400); RBC Distribution Width 13.6 % (11.5-14.5); Red Blood Cell (RBC) Count 2.83 mill/uL (4.70-6.10)
[2023-07-24 06:33] LABS: Anion Gap 12 mmol/L (10-20); BUN (Urea Nitrogen) Less than 4 mg/dL (8.4-25.7); Calc. Creatinine Clearance 78 mL/min (70-130); Calcium 8.5 mg/dL (7.8-10.44); Carbon Dioxide 25 mmol/L (23-31); Chloride 101 mmol/L (98-107); Estimated GFR 99; Glucose 75 mg/dL (83-110); Magnesium 0.9 mg/dL (1.6-2.6); Potassium 4.1 mmol/L (3.5-5.1); Sodium 134 mmol/L (136-145)
[2023-07-24] MEDS: Magnesium Sulfate In Water 4 GM in Premix 1 BAG IVPB SCH (07:12)
[2023-07-24] MEDS: Magnesium Oxide 400 MG TAB PO SCH (08:48)
[2023-07-24 16:03] LABS: Magnesium 1.4 mg/dL (1.6-2.6)
[2023-07-24 17:53] VITALS: BP 121/73; TEMP 98.1
== END 2023-07-24 19:25 | disposition home health service (06) | DRG 181 ==
LOC: ERS 08:46 → T4-A 13:27 → MSONC 18:04 → OBSVTOIN 07-23 14:45
PROVIDERS: ADMIT Internal Medicine; ATTEND Internal Medicine
DX: C34.90 Malignant neoplasm of unspecified part of unspecified bronchus or lung (principal); C78.7 Secondary malignant neoplasm of liver and intrahepatic bile duct; E87.20 Acidosis, unspecified; Z68.1 Body mass index [BMI] 19.9 or less, adult; E44.0 Moderate protein-calorie malnutrition; Z51.5 Encounter for palliative care; Z66 Do not resuscitate; E83.42 Hypomagnesemia; E87.8 Other disorders of electrolyte and fluid balance, not elsewhere classified; J44.9 Chronic obstructive pulmonary disease, unspecified; K75.4 Autoimmune hepatitis; I45.10 Unspecified right bundle-branch block; R53.81 Other malaise; D53.9 Nutritional anemia, unspecified; Z79.899 Other long term (current) drug therapy; Z87.891 Personal history of nicotine dependence; Z98.890 Other specified postprocedural states
CPT/HCPCS: 36415; 36416; 70450; 70553; 71045; 80048; 80053; 80179; 80307; 81001; 82010; 82436; 82805; 83605; 83690; 83735; 83880; 83930; 83935; 84133; 84300; 84484; 85025; 85610; 85730; 87040; 87086; 93005; 96365; 96375; 96376; A9579; G0378; J2270; J2405; J3475; J7120

== ENCOUNTER 2023-12-03 08:00 | Outpatient (CLI) | payer OTHER | END 2023-12-03 08:01 | disposition home or self-care (01) | LOC: PET 08:00 | PROVIDERS: ATTEND Internal Medicine Hematology & Oncology | DX: C34.11 Malignant neoplasm of upper lobe, right bronchus or lung (principal); R91.8 Other nonspecific abnormal finding of lung field | CPT/HCPCS: 78815; A9552 ==